=== PATIENT | female | born 1995 | race Caucasian/White ===

== ENCOUNTER 2017-11-10 14:55 | Emergency (ER) | payer OTHER, MEDICAID, SELFPAY ==
[2017-11-10 14:59] VITALS: BP 113/68; PULSE 84; RESP 20; TEMP 36.4; O2SAT 97; BMI 25.8
--- NOTE | 2017-11-10 18:57 | ED.SKABFB ---
HPI - Skin/Abscess/Foreign Bdy <MARK Meier - Last Filed: 11/10/17 22:07> General Chief complaint: Skin/Abscess/Foreign Body Stated complaint: States swollen lymph node for a long time Time Seen by Provider: 11/10/17 18:57 Source: patient Mode of arrival: ambulatory Limitations: no limitations History of Present Illness HPI narrative: 22-year-old healthy female nonsmoker here for complaint of having had a nodule to her right axillary area for the past 4 years. She also complains of having bilateral breast pain over the past couple of days. She does state that she is currently on her cycle. She denies any fevers or chills. No drainage from the area. No drainage from the breast. She denies any other concerns or complaints at this time. Review of Systems <MARK Meier - Last Filed: 11/10/17 22:07> Constitutional Denies chills, Denies fever(s), Denies lethargy and Denies weakness Eyes Denies change in vision, Denies eye discharge, Denies irritation and Denies loss of vision ENT Ears, Nose, Mouth, and Throat: Denies change in voice, Denies neck pain and Denies sore throat Cardiovascular Denies chest pain, Denies irregular heart rhythm, Denies lightheadedness, Denies palpitations, Denies dyspnea, Denies dyspnea on exertion and Denies orthopnea Respiratory Denies cough, Denies dyspnea, Denies dyspnea on exertion and Denies wheezing Gastrointestinal Gastrointestinal: Denies abdominal pain, Denies change in bowel habits, Denies diarrhea, Denies nausea and Denies vomiting Genitourinary Denies hematuria, Denies flank pain, Denies urinary incontinence and Denies urinary urgency Musculoskeletal Denies neck pain Integumentary/Breasts Denies pruritus, Denies erythema, Denies rash and Denies wounds Comments: Bilateral breast pain nodule to the right axillary area Neurologic Denies confusion, Denies loss of vision and Denies weakness Psychiatric Denies anxiety, Denies confusion, Denies depression, Denies homicidal ideation and Denies suicidal ideation Endocrine Denies palpitations Hematologic/Lymphatic Denies easy bruising Allergic/Immunologic Denies wheezing Exam <MARK Meier - Last Filed: 11/10/17 22:07> Initial Vital Signs Initial Vital Signs: Vital Signs Temperature 97.5 F L 11/10/17 14:59 Pulse Rate 84 11/10/17 14:59 Respiratory Rate 20 11/10/17 14:59 Blood Pressure 113/68 11/10/17 14:59 Pulse Oximetry 97 11/10/17 14:59 Const General: cooperative and well developed Nutritional Appearance: well nourished Orientation: alert, awake, oriented x3 and not confused [facility] Mouth: oral mucosae normal and moist mucous membranes Eyes Conjunctivae: conjunctivae normal Sclera: sclerae normal Pupils: PERRL EOM: EOM intact bilaterally Resp Effort & Inspection: normal respiratory effort, able to speak in complete sentences, no respiratory distress and no use of accessory muscles Auscultation: clear to auscultation bilaterally, no rales, no rhonchi and no wheezes Cardio Rate: regular rate Rhythm: regular rhythm Heart Sounds: no click, no gallops, no murmurs and no rubs Pulses: normal peripheral pulses GI Inspection: non-distended Palpation: soft, no hepatosplenomegaly, No guarding, No pulsatile mass and No tender Auscultation: normal bowel sounds Skin General: No jaundice and No petechiae Other: Approximately 2 cm x 2 cm nodule to the right axillary area. No erythema. No induration or fluctuance. Does not appear infectious at this time. Bilateral breast exam unremarkable with no erythema. No drainage. Neuro General: alert, oriented x3, gait normal and no focal motor deficits Speech: speech normal <Marii Palacios DO - Last Filed: 11/11/17 03:07> Initial Vital Signs Initial Vital Signs: Vital Signs Temperature 97.5 F L 11/10/17 14:59 Pulse Rate 84 11/10/17 14:59 Respiratory Rate 20 11/10/17 14:59 Blood Pressure 113/68 11/10/17 14:59 Pulse Oximetry 97 11/10/17 14:59 Course <MARK Meier - Last Filed: 11/10/17 22:07> Vital Signs - 8 hr 11/10/17 19:39 Pulse Rate 67 Respiratory Rate 20 Blood Pressure [Right Arm] 91/54 L Pulse Oximetry 99 <Marii Palacios DO - Last Filed: 11/11/17 03:07> Vital Signs - 8 hr 11/10/17 19:39 Pulse Rate 67 Respiratory Rate 20 Blood Pressure [Right Arm] 91/54 L Pulse Oximetry 99 MDM - Skin/Abscess/Foreign Bdy <MARK Meier - Last Filed: 11/10/17 22:07> [facility] Narrative Medical decision making narrative: Nodule to the right axillary area does not appear infectious at this time. No infection is appreciated in the breast. Patient is encouraged to follow up with primary care provider next week and discussion of referral to Dermatology and for mammogram. Breast pain appears to be secondary to her menstrual cycle. [id number] Tylenol or Motrin as needed for any discomfort. Follow up with primary care provider next week. Return emergency for any worsening symptoms. Discharge Plan Departure Patient Disposition: Home Clinical Impression: Pain in right axilla Discharge Date/Time: 11/10/17 20:14 Interventions: ED Discharge Assessment Last Done: 11/10/17 20:13 Instructions: DI for Breast Pain (Mastalgia) Activity Restrictions/Additional Instructions: Sinus symptoms not appear to be infectious at this time. Breast pain most likely secondary to menstrual cycle pain. Recommend follow up with primary care provider next week for further evaluation and discussion for referral to Dermatology and discussion about mammogram. Use [id number] Tylenol or Motrin as needed for any discomfort. Follow up with her primary care provider. Return emergency room for worsening symptoms. Referrals: [facility] [Provider Group] <Marii Palacios DO - Last Filed: 11/11/17 03:07> [facility] ED Attending Kelli Attestation: I was immediately available in the department for consultation. Documentation has been reviewed. I agree with assessment and plan.
[2017-11-10 19:39] VITALS: BP 91/54; PULSE 67; RESP 20; O2SAT 99
--- NOTE | 2017-11-10 20:01 | PC.NURSE ---
stand by with magdi chaudhary
== END 2017-11-10 20:14 | disposition home or self-care (01) ==
PROVIDERS: Emergency Provider Nurse Practitioner Family
DX: M79.621 Pain in right upper arm (principal)
CPT/HCPCS: 99282

== ENCOUNTER 2019-05-04 12:20 | Emergency (ER) | payer OTHER, MEDICAID, SELFPAY ==
[2019-05-04 12:34] VITALS: BP 150/71; PULSE 79; RESP 14; TEMP 36.7; O2SAT 100; BMI 21.9
[2019-05-04 13:23] LABS: Influenza A - CEPHEID Flu A NEGATIVE (NEGATIVE); Influenza B - CEPHEID Flu B NEGATIVE (NEGATIVE)
[2019-05-04] MEDS: ONDANSETRON 4 MG ODT SL (13:43)
[2019-05-04] MEDS: ALBUTEROL HFA 60 PUFF/8 GM INH INH (13:58)
--- NOTE | 2019-05-04 14:53 | ED_ITS ---
HPI - URI/Sore Throat <MARK Bajwa - Last Filed: 05/04/19 15:00> General Chief Complaint: Upper Respiratory Symptoms Stated Complaint: SOB, elevated temp, dry cough, chills Time Seen by Provider: 05/04/19 12:49 Source: patient Mode of arrival: Ambulatory Limitations: no limitations History of Present Illness HPI Narrative: This is a 24-year-old female, nonsmoker, who presents to ED with 2 day duration of runny nose, tickle in the throat, cough, feeling fatigued, short of breath, nausea. Patient was instructed to going to ED for an evaluation and work note from her work [employer]. Patient reports her roommate's girlfriend who she had a close contact with before her symptoms started was just diagnosed with payan virus in [facility] and is currently self quarantine herself at this time. Patient denies chronic illnesses. Patient denies fever but self reported hot to touch and chills at this time. Patient denies diarrhea. Related Data Previous Rx's Medication Instructions Recorded ondansetron 4 mg PO BID-TID PRN #10 tab 05/04/19 Allergies Allergy/AdvReac Type Severity Reaction Status Date / Time No Known Drug Allergies Allergy Verified 05/04/19 12:34 Review of Systems <MARK Bajwa - Last Filed: 05/04/19 15:00> Review of Systems Narrative: General: See HPI HEENT: See HPI Respiratory: See HPI Cardiovascular: Denies chest pain, palpitations, orthopnea, edema. Gastrointestinal: Denies (+) nausea, vomiting, abdominal pain, diarrhea, constipation, melena. : Denies dysuria, frequency, incontinence, hematuria, urinary retention. Musculoskeletal: Denies weakness, joint pain or bony pain. Skin: Denies rash, skin lesions, or other. Neurologic: Denies weakness, headache, numbness, change in speech, confusion, seizures, incoordination. Psychiatric: No concerning psychosocial issues. 12-point review of systems is negative except for those stated above. Patient History <MARK Bajwa - Last Filed: 05/04/19 15:00> Medical History No significant past medical history (Acute) Surgical History No pertinent past surgical history (Acute) Social History Smoking Status: Never smoker Smoking Status: Never smoker Substance Use Type: marijuana Exam <MARK Bajwa - Last Filed: 05/04/19 15:00> Narrative Exam Narrative: GEN: Alert, oriented x 3, well appearing and nourished, and in no acute distress. Head: Normal cephalic, atraumatic. No scalp or temporal tenderness, palpable mass or rash. EYES: Pupils are equal, round, and reactive to light and accommodation. Extraocular muscles are intact bilaterally. There is no subconjunctival hemorrhage, exudate and sclera non-icteric. ENT: Bilateral auditory canals and tympanic membranes clear. Hearing grossly intact. Nose without bleeding, purulent discharge or deviation. Facial sinuses nontender to palpate. Mucous membrane moist, no mucosal lesion. Throat without erythema, tonsillar hypertrophy or exudate. Uvula in midline, airway patent. Neck: Trachea in midline. No JVD, non-tender without lymphadenopathy. No masses or thyroid megaly. Supple, non-tender and no meningeal signs. CARDIAC: Normal regular rate and rhythm without murmurs, gallops, or rubs. No chest wall tenderness. No peripheral edema, cyanosis or pallor. Capillary refill is less than 2 seconds. RESPIRATORY: Lungs are clear to auscultate bilaterally. Frequent nonproductive cough during exam without wheezes, rales, or rhonchi. No stridor, respiratory distress, increase work of breathing, or accessary muscle used. ABD: Abdomen soft, nontender and non-distended. No guarding or rebound tenderness to palpate. Bowel sounds are normal in all 4 quadrants. There is no palpable masses or organomegaly. EXT: Full painless ROM of all extremities with no loss of sensation, strength, effusion or edema. SKIN: Warm, dry, normal color for patient. No erythema, lesions or rash over visible areas. BACK: Nontender without deformity or crepitance. No flank tenderness. NEUROLOGICAL: Alert and oriented to place, time and person. Sensation and motor function intact bilaterally. No facial droops, dysphasia. PSYCHIATRIC: Good judgement and reason, without hallucinations, abnormal affect or abnormal behaviors during the examination. Initial Vital Signs Initial Vital Signs: Vital Signs Temperature 98.1 F 05/04/19 12:34 Pulse Rate 79 05/04/19 12:34 Respiratory Rate 14 05/04/19 12:34 Blood Pressure 150/71 H 05/04/19 12:34 Pulse Oximetry 100 05/04/19 12:34 <Madhav Hernandez MD - Last Filed: 05/11/19 17:57> Initial Vital Signs Initial Vital Signs: Vital Signs Temperature 98.1 F 05/04/19 12:34 Pulse Rate 79 05/04/19 12:34 Respiratory Rate 14 05/04/19 12:34 Blood Pressure 150/71 H 05/04/19 12:34 Pulse Oximetry 100 05/04/19 12:34 Scores <MARK Bajwa - Last Filed: 05/04/19 15:00> GCS [place] coma scale eye opening: Spontaneous [place] coma scale verbal response: Orientated Juan coma scale motor response: Obey commands [place] coma scale total score: 15 Course <MARK Bajwa - Last Filed: 05/04/19 15:00> Orders Ordered: Discontinued Medications Albuterol (Ventolin Hfa) 2 puff INH NOW ONE Stop: 05/04/19 13:25 Last Admin: 05/04/19 13:58 Dose: 1 prepack Documented by: JEFF Ondansetron HCl (Zofran Odt) 4 mg SL NOW ONE Stop: 05/04/19 13:25 Last Admin: 05/04/19 13:43 Dose: 4 mg Documented by: THERESA Vital Signs Vital signs: Vital Signs - 8 hr 05/04/19 12:34 Temperature 98.1 F Pulse Rate 79 Respiratory Rate 14 Blood Pressure 150/71 H Pulse Oximetry 100 <Madhav Hernandez MD - Last Filed: 05/11/19 17:57> Orders Ordered: Discontinued Medications Albuterol (Ventolin Hfa) 2 puff INH NOW ONE Stop: 05/04/19 13:25 Last Admin: 05/04/19 13:58 Dose: 1 prepack Documented by: JEFF Ondansetron HCl (Zofran Odt) 4 mg SL NOW ONE Stop: 05/04/19 13:25 Last Admin: 05/04/19 13:43 Dose: 4 mg Documented by: SCANAPO Vital Signs Vital signs: Vital Signs - 8 hr 05/04/19 12:34 Temperature 98.1 F Pulse Rate 79 Respiratory Rate 14 Blood Pressure 150/71 H Pulse Oximetry 100 MDM - URI/Sore Throat <MARK Bajwa - Last Filed: 05/04/19 15:00> Differential Diagnosis Differential diagnosis: Likely upper respiratory infection, viral infection, bronchitis, influenza, pharyngitis and other (Payan virus) Medical Records Attestation: I reviewed the patient's medical records. Lab Data Attestation: I reviewed the patient's lab results. Labs: Lab Results 05/04/19 05/04/19 Range/Units 12:37 12:37 Coronavirus (PCR) Not detected (Not Detected) Influenza A (RT-PCR) Flu a negative (NEGATIVE) Influenza B (RT-PCR) Flu b negative (NEGATIVE) Point of Care Testing Rapid Strep A Negative MDM Narrative Medical decision making narrative: This is a 24 year female otherwise healthy presents to ED with upper respiratory illness symptoms for last 2 days without severe fever, cough, short of breath. Patient reports she had close contact with her roommate's girlfriend who has diagnosed with payan virus currently. Today's flu test was negative. Strep throat swab was negative. Lung sounds are clear to auscultate in all lobes without increased work of breathing but patient had frequent nonproductive cough. Patient reports subjective fever and chills. Room air O2 sat was 100%. Patient was provided with albuterol inhaler and MDI teaching, discharged to home with Zofran for nausea as needes and advised to self quarantine herself for next 4-5 days until payan virus result comes back and this may prolonged up to 2-3 weeks if the test comes back positive. Good hand hygiene, keeping distance from others along the supportive care discussed with the patient. Return precautions were discussed with the patient and verbalized understanding and in agreement with treatment plan. <Madhav Hernandez MD - Last Filed: 05/11/19 17:57> Lab Data Labs: Lab Results 05/04/19 05/04/19 Range/Units 12:37 12:37 Coronavirus (PCR) Not detected (Not Detected) Influenza A (RT-PCR) Flu a negative (NEGATIVE) Influenza B (RT-PCR) Flu b negative (NEGATIVE) Point of Care Testing Rapid Strep A Negative Discharge Plan Departure Patient Disposition: Home Clinical Impression: Viral infection Upper respiratory infection Qualifiers: URI type: unspecified URI Qualified Code(s): J06.9 - Acute upper respiratory infection, unspecified Discharge Date/Time: 05/04/19 15:06 Instructions: DI for Viral Upper Respiratory Infection -- Adult Activity Restrictions/Additional Instructions: You have been diagnosed with [upper respiratory infection likely viral illness. Influenza test and strep throat test were negative. Since you report that you had close contact with the personal was coronal virus, we had sent out testing kit but the results will not be ready up to 5 days. You need to self quarantine herself until you hear the result. If this comes back positive you are to self quarantine herself up to 2 weeks until no fever for 72 hours or you are feeling well which at ever comes later.]. What to do: *Take your medications as directed. You can take [id number] Tylenol and or Motrin as needed for discomfort. Please use albuterol inhaler that has been provided to you through spacer for frequent cough, chest tightness, wheezing. You can take [id number] cold medications such as Mucinex. Hydrate well and rest. Good hand hygiene, no close contact with others and other information that you can find in department health and CDC for payan virus precautions. *Follow up with your primary care provider in 2-3 days, call for an appointment. Let them know you were seen in the ED and that we asked you to be seen in follow up. *Return to ED if you have any new, worsening, or concerning symptoms, such as [high fever, breathing difficulty, chest pain, unable to tolerate fluids or any acute concerns]. Prescriptions: New ondansetron 4 mg tablet,disintegrating 4 mg PO BID-TID PRN (Reason: nausea and vomiting) Qty: 10 RF: 0 Referrals: [facility] [Outside] Stand Alone Forms: Work Release Note, Work/School Release
[2019-05-04 15:05] VITALS: BP 126/68; PULSE 76; RESP 18; O2SAT 100
[2019-05-08 17:09] LABS: COVID19 Sendout Not Detected (Not Detected)
== END 2019-05-04 15:06 | disposition home or self-care (01) ==
PROVIDERS: Emergency Medicine; Emergency Provider Nurse Practitioner Family
DX: J06.9 Acute upper respiratory infection, unspecified (principal); R50.9 Fever, unspecified; R05 Cough; R06.02 Shortness of breath
CPT/HCPCS: 87502; 87635; 87880; 99283

== ENCOUNTER 2019-08-25 09:32 | Emergency (ER) | payer OTHER, MEDICAID, SELFPAY ==
[2019-08-25] VITALS (10 sets, daily range): BP systolic 110–118; BP diastolic 68–75; PULSE 68–96; RESP 14–16; TEMP 36.8–37.2; O2SAT 98–100; BMI 24.9
--- NOTE | 2019-08-25 10:31 | ED_ITS ---
HPI - URI/Sore Throat General Chief Complaint: Upper Respiratory Symptoms Stated Complaint: Suspects Covid, trouble breathing, bad cough Time Seen by Provider: 08/25/19 10:13 Source: patient Mode of arrival: Family Vehicle Limitations: no limitations History of Present Illness HPI Narrative: CC: Persistent Cough HPI: The patient is a 24-year-old female who states that she initially had a sore throat with nasal congestion and a cough which started 1 week ago. She thought that it was a upper respiratory infection but now she thinks that she may have Covid. She is unaware of any exposure. She complains that she has been dizzy and lightheaded with a headache. She has developed a progressive worsening cough productive of a clear sputum. She complains of diffuse muscle aches and body aches but no specific back ache. She had a sore throat 1 week ago. She has had a loss of taste and smell. Her appetite has been decreased. She has intermittently felt feverish with chills and sweats. She has had no nu mbness tingling paresthesias or anesthesia. She has a past history of pneumonia last year has had no significant wheezing. She denies any change in vision or dysphasia . She has had chest pain with coughing but no palpitations or dizziness. She denies any back ache. She has had diffuse abdominal cramps with nausea and vomiting. She vomited twice this morning. She has had diarrhea for the last 2 days without melena or hematochezia. She denies any urinary symptoms. She denies being states that her last menstrual period was 1 week ago. The patient does not smoke cigarettes drink alcohol chew tobacco but does smoke marijuana. She works in the [employer] department at [employer] Related Data Previous Rx's Medication Instructions Recorded ondansetron 4 mg PO BID-TID PRN #10 tab 05/04/19 albuterol sulfate 2 puff INHALATION Q4-6H PRN #8.5 08/25/19 gram doxycycline hyclate 100 mg PO BID #14 tab 08/25/19 loperamide 2 mg PO Q4H PRN #10 tab 08/25/19 ondansetron HCl [Zofran] 4 mg PO Q6H PRN #12 tab 08/25/19 Allergies Allergy/AdvReac Type Severity Reaction Status Date / Time No Known Drug Allergies Allergy Verified 05/04/19 12:34 Review of Systems Review of Systems Narrative: Her review of systems were all negative except for those mentioned in the history of present illness. Patient History Medical History No significant past medical history (Acute) Surgical History No pertinent past surgical history (Acute) Social History Smoking Status: Former smoker Smoking Status: Former smoker alcohol intake frequency: 0-2 drinks per day Substance Use Type: marijuana Exam Narrative Exam Narrative: PHYSICAL EXAM: CONSTITUTIONAL: Awake, Alert, Oriented, Coherent, Cooperative in NAD. Does not appear toxic or ill. HEAD: AT/NC EENT: PERRL, FROM of eyes, no discharge. NOSE:No epistaxis or nasal drainage MOUTH:Oral mucosa is moist and pink, posterior pharynx is without erythema or exudate. NECK: Supple, no obvious JVD, Trachea is midline without stridor, no palpable LN. SPINE: Palpation of the cervical, Thoracic, Lumbar or Sacral spine reveals no gross deformity or tenderness. No CVA tenderness. THORAX: No deformity, retractions. The patient's chest wall is tender anteriorly to AP compression and mimics the chest discomfort described LUNGS: Clear, symmetrical breath sounds without respiratory distress. No wheezes rhonchi or rales appreciated. HEART: Normal heart tones, regular rhythm and rate without murmur. ABDOMEN: Soft, non-tender, without guarding, rebound, rigidity or palpable mass. EXTREMITIES: No edema, deformity, tenderness or cyanosis. SKIN: No rash, bruising, petechiae or purpura. NEURO: Awake, alert, oriented, conversive, cranial nerves II-XII are symmetrical , moves all 4 extremities and is ambulatory. MENTAL HEALTH: Does not appear anxious or depressed. Initial Vital Signs Initial Vital Signs: Vital Signs Pulse Rate 96 H 08/25/19 09:42 Pulse Oximetry 98 08/25/19 09:42 Course Course Course Narrative: 1211: Chest x-ray is negative for any acute cardiopulmonary pathology. Laboratory chemistries remain pending at this time. Orders Ordered: Discontinued Medications Albuterol (Ventolin Hfa) 2 puff INH NOW ONE Stop: 08/25/19 10:33 Last Admin: 08/25/19 11:11 Dose: Not Given Documented by: PERLA Sodium Chloride (Normal Saline 0.9%) 1,000 mls @ 1,000 mls/hr IV BOLUS ONE Stop: 08/25/19 11:45 Last Admin: 08/25/19 11:12 Dose: Not Given Documented by: PERLA Ibuprofen (Advil) 800 mg PO NOW ONE Stop: 08/25/19 11:16 Last Admin: 08/25/19 11:49 Dose: 800 mg Documented by: PERLA Ketorolac Tromethamine (Toradol) 30 mg IV NOW ONE Stop: 08/25/19 10:47 Last Admin: 08/25/19 11:11 Dose: Not Given Documented by: PERLA Methylprednisolone (Solu-Medrol 125 Mg Vial) 125 mg IV NOW ONE Stop: 08/25/19 10:33 Last Admin: 08/25/19 11:11 Dose: Not Given Documented by: PERLA Ondansetron HCl (Zofran) 4 mg IV NOW ONE Stop: 08/25/19 10:47 Last Admin: 08/25/19 11:12 Dose: Not Given Documented by: PERLA Ondansetron HCl (Zofran Odt) 4 mg SL NOW ONE Stop: 08/25/19 11:16 Last Admin: 08/25/19 11:51 Dose: 4 mg Documented by: PERLA Prednisone (Deltasone) 60 mg PO NOW ONE Stop: 08/25/19 11:16 Last Admin: 08/25/19 11:49 Dose: 60 mg Documented by: PERLA Vital Signs Vital signs: Vital Signs - 8 hr 08/25/19 09:42 08/25/19 09:43 08/25/19 09:48 Temperature 99.0 F Pulse Rate 96 H 89 92 H Respiratory Rate 16 Blood Pressure 114/75 114/75 Pulse Oximetry 98 98 99 08/25/19 10:00 08/25/19 10:30 08/25/19 11:00 Temperature Pulse Rate 72 69 68 Respiratory Rate Blood Pressure Pulse Oximetry 99 100 100 08/25/19 11:07 Temperature Pulse Rate Respiratory Rate 16 Blood Pressure Pulse Oximetry MDM - URI/Sore Throat Medical Records Attestation: I reviewed the patient's medical records. Lab Data Attestation: I reviewed the patient's lab results. Result diagrams: 08/25/19 12:00 08/25/19 12:00 Labs: Lab Results 08/25/19 08/25/19 08/25/19 Range/Units 12:00 12:00 12:31 WBC 9.5 (4.5-11.0) X10^3/uL RBC 4.47 (4.0-5.2) X10^6/uL Hgb 13.2 (12.0-16.0) g/dL Hct 39.3 (36-46) % MCV 88.0 (80-100) fL MCH 29.6 (26-34) PG MCHC 33.6 (30-36) % RDW 12.7 (11.6-14.8) % Plt Count 315 (150-400) X10^3/uL Neut % (Auto) 70.6 (50-75) % Lymph % (Auto) 22.2 L (25-40) % [place] % (Auto) 5.0 (3-14) % Eos % (Auto) 1.7 L (2-4) % Baso % (Auto) 0.5 (0-2) % Neut # (Auto) 6700 (6578-7683) /uL Lymph # (Auto) 2100 (9837-9461) /uL [place] # (Auto) 500 (0-900) /uL Eos # (Auto) 200 (0-450) /uL Baso # (Auto) 0 (0-100) /uL Sodium 137 (137-145) mmol/L Potassium 4.4 (3.4-5.1) mmol/L Chloride 103 (98-107) mmol/L Carbon Dioxide 25 (22-32) mmol/L BUN 7 (7-17) mg/dL Creatinine 0.49 L (0.52-1.04) mg/dL Estimated GFR > 60.0 (>60) mL/min BUN/Creatinine Ratio 14.3 (6-22) Glucose 89 (70-100) mg/dL Calcium 9.7 (8.4-10.2) mg/dL Total Bilirubin 0.6 (0.2-1.3) mg/dL AST 30 (14-36) IU/L ALT 17 (<35) IU/L Alkaline Phosphatase 51 (38-126) U/L Total Protein 7.6 (6.3-8.2) g/dL Albumin 4.7 (3.5-5.0) g/dL Globulin 2.9 (1.7-4.1) g/dL Albumin/Globulin Ratio 1.6 (1.0-2.8) Lipase 20 L (23-300) U/L Urine Color Urine Appearance Urine pH (4.5-8.0) Ur Specific [place] (1.000-1.035) Urine Protein (Negative) Urine Glucose (UA) (Negative) g/dL Urine Ketones (NEGATIVE) Urine Occult Blood (Negative) Urine Nitrate (Negative) Urine Bilirubin (NEGATIVE) Urine Urobilinogen (0.2) E.U./dL Ur Leukocyte Esterase (NEGATIVE) Urine RBC (0-5/HPF) Urine WBC (0-5/HPF) Ur Squamous Epith Cells (0-5/HPF) Amorphous Sediment Urine Bacteria (None) Urine Mucus (Negative) Ur Culture Indicated? Urine Test Negative (Negative) COVID-19 PCR (Negative) 08/25/19 08/25/19 Range/Units 12:31 12:31 WBC (4.5-11.0) X10^3/uL RBC (4.0-5.2) X10^6/uL Hgb (12.0-16.0) g/dL Hct (36-46) % MCV (80-100) fL MCH (26-34) PG MCHC (30-36) % RDW (11.6-14.8) % Plt Count (150-400) X10^3/uL Neut % (Auto) (50-75) % Lymph % (Auto) (25-40) % [place] % (Auto) (3-14) % Eos % (Auto) (2-4) % Baso % (Auto) (0-2) % Neut # (Auto) (6730-6515) /uL Lymph # (Auto) (4996-9258) /uL [place] # (Auto) (0-900) /uL Eos # (Auto) (0-450) /uL Baso # (Auto) (0-100) /uL Sodium (137-145) mmol/L Potassium (3.4-5.1) mmol/L Chloride (98-107) mmol/L Carbon Dioxide (22-32) mmol/L BUN (7-17) mg/dL Creatinine (0.52-1.04) mg/dL Estimated GFR (>60) mL/min BUN/Creatinine Ratio (6-22) Glucose (70-100) mg/dL Calcium (8.4-10.2) mg/dL Total Bilirubin (0.2-1.3) mg/dL AST (14-36) IU/L ALT (<35) IU/L Alkaline Phosphatase (38-126) U/L Total Protein (6.3-8.2) g/dL Albumin (3.5-5.0) g/dL Globulin (1.7-4.1) g/dL Albumin/Globulin Ratio (1.0-2.8) Lipase (23-300) U/L Urine Color Yellow Urine Appearance Sl cloudy Urine pH 6.0 (4.5-8.0) Ur Specific [place] 1.020 (1.000-1.035) Urine Protein Negative (Negative) Urine Glucose (UA) Negative (Negative) g/dL Urine Ketones 3+ H (NEGATIVE) Urine Occult Blood Trace-intact (Negative) Urine Nitrate Negative (Negative) Urine Bilirubin Negative (NEGATIVE) Urine Urobilinogen 0.2 (0.2) E.U./dL Ur Leukocyte Esterase Negative (NEGATIVE) Urine RBC 0-1/hpf (0-5/HPF) Urine WBC 0-1/hpf (0-5/HPF) Ur Squamous Epith Cells 10-30 /hpf H (0-5/HPF) Amorphous Sediment 2+ Urine Bacteria Moderate (10-30) H (None) Urine Mucus 2+ H (Negative) Ur Culture Indicated? Cult not indicated Urine Test (Negative) COVID-19 PCR Negative (Negative) Point of Care Testing Rapid Strep A Negative Discharge Plan Departure Patient Disposition: Home Clinical Impression: Productive cough, Sore throat Abdominal pain Qualifiers: Abdominal location: generalized Qualified Code(s): R10.84 - Generalized abdominal pain Nausea and vomiting Qualifiers: Vomiting type: unspecified Vomiting Intractability: non-intractable Qualified C ode(s): R11.2 - Nausea with vomiting, unspecified Diarrhea Qualifiers: Diarrhea type: unspecified type Qualified Code(s): R19.7 - Diarrhea, unspecified Discharge Date/Time: 08/25/19 13:50 Instructions: Diarrhea, DI for Acute Bronchitis, DI for Vomiting -- Adult, Coronavirus Disease 2019 Activity Restrictions/Additional Instructions: 1. You need to follow-up with your primary care physician and be re-evaluated in 48-72 hours if not improved. 2. You need to be in isolation for the next 3-4 days until your Covid test returns and are called by the hospital with the results. 3. You need to drink 3-4 L of fluid per day. 4. Take the doxycycline 100 mg p.o. b.i.d. for the next 7 days for your persistent cough and bronchitis. 5. Prednisone 40 mg per day for the next 5 days for your cough. 6. Use an albuterol inhaler 1-2 puffs every 2-4 hours for persistent cough wheezing and shortness of breath 7. Use loperamide for your diarrhea as prescribed.. Prescriptions: New ondansetron HCl [Zofran] 4 mg tablet 4 mg PO Q6H PRN (Reason: nausea and vomiting) Qty: 12 RF: 0 doxycycline hyclate 100 mg tablet 100 mg PO BID Qty: 14 RF: 0 loperamide 2 mg tablet 2 mg PO Q4H PRN (Reason: loose stool) Qty: 10 RF: 0 albuterol sulfate 90 mcg/actuation HFA aerosol inhaler 2 puff INHALATION Q4-6H PRN (Reason: shortness of breath or wheezing) Qty: 8.5 RF: 0 No Action ondansetron 4 mg tablet,disintegrating 4 mg PO BID-TID PRN (Reason: nausea and vomiting) Qty: 10 RF: 0
--- NOTE | 2019-08-25 10:33 | DI.RAD.S_ITS ---
PROCEDURE: XR CHEST 1V INDICATIONS: flu-like symptoms TECHNIQUE: One view of the chest was acquired. COMPARISON: None. FINDINGS: Surgical changes and devices: None. Lungs and pleura: Lungs are clear. No pleural effusions or pneumothorax. Mediastinum: Mediastinal contours appear normal. Heart size is normal. Bones and chest wall: No suspicious bony lesions. Overlying soft tissues appear unremarkable. IMPRESSION: No evidence acute pulmonary process. Dictated by: Constantin Ruiz M.D. on 08/25/2019 at 10:38 Approved by: Constantin Ruiz M.D. on 08/25/2019 at 10:38
[2019-08-25] MEDS: IBUPROFEN 400 MG TABLET 800 MG PO (11:49)
[2019-08-25] MEDS: predniSONE 20 MG TABLET 60 MG PO (11:49)
[2019-08-25] MEDS: ONDANSETRON 4 MG ODT SL (11:51)
[2019-08-25 12:10] LABS: Add Manual Diff / Slide Review NO; Basophils Absolute Auto 0 /uL (0-100); Basophils Percent Auto 0.5 % (0-2); Eosinophils Absolute Auto 200 /uL (0-450); Eosinophils Percent Auto 1.7 % (2-4); Hematocrit 39.3 % (36-46); Hemoglobin 13.2 g/dL (12.0-16.0); Lymphocytes Absolute Auto 2100 /uL (1100-4500); Lymphocytes Percent Auto 22.2 % (25-40); Mean Corpuscular HGB Conc 33.6 % (30-36); Mean Corpuscular Hemoglobin 29.6 PG (26-34); Monocytes Absolute Auto 500 /uL (0-900); Neutrophils Absolute Auto 6700 /uL (1500-7000); Neutrophils Percent Auto 70.6 % (50-75); Platelet Count 315 X10^3/uL (150-400); Red Blood Cell Count 4.47 X10^6/uL (4.0-5.2); Red Cell Distribution Width 12.7 % (11.6-14.8); White Blood Cell Count 9.5 X10^3/uL (4.5-11.0)
[2019-08-25 12:23] LABS: Alanine Aminotransferase 17 IU/L (<35); Albumin 4.7 g/dL (3.5-5.0); Albumin Globulin Ratio 1.6 (1.0-2.8); Alkaline Phosphatase 51 U/L (38-126); Aspartate Aminotransferase 30 IU/L (14-36); BUN Creatinine Ratio 14.3 (6-22); Bilirubin Total 0.6 mg/dL (0.2-1.3); Blood Urea Nitrogen 7 mg/dL (7-17); Calcium 9.7 mg/dL (8.4-10.2); Carbon Dioxide 25 mmol/L (22-32); Chloride 103 mmol/L (98-107); Estimated Glomerular Filt Rate > 60.0 mL/min (>60); Globulin 2.9 g/dL (1.7-4.1); Glucose 89 mg/dL (70-100); HEMOLYSIS < 15 (0-50); Lipase 20 U/L (23-300); Potassium 4.4 mmol/L (3.4-5.1); Sodium 137 mmol/L (137-145); Total Protein 7.6 g/dL (6.3-8.2)
[2019-08-25 12:46] LABS: Appearance Urine UA SL CLOUDY; Bilirubin Urine UA NEGATIVE (NEGATIVE); Color Urine UA YELLOW; Glucose Urine UA NEGATIVE (Negative); Ketones Urine UA 3+ (NEGATIVE); Leukocyte Esterase Urine UA NEGATIVE (NEGATIVE); Nitrite Urine UA NEGATIVE (Negative); Occult Blood Urine UA TRACE-INTACT (Negative); Protein Urine UA NEGATIVE (Negative); Urobilinogen Urine UA 0.2 E.U./dL (0.2)
[2019-08-25 12:50] LABS: Pregnancy Test Urine Negative (Negative)
[2019-08-25 13:02] LABS: RBC Urine 0-1/HPF (0-5/HPF); WBC Urine 0-1/HPF (0-5/HPF)
[2019-08-25 13:03] LABS: Amorphous Sediment Urine 2+; Bacteria Urine Moderate (10-30); Culture Indicated Urine Cult Not Indicated; Mucus Urine 2+ (Negative); Squamous Epithelial Cell Urine 10-30 /HPF (0-5/HPF)
[2019-08-25 13:50] LABS: COVID19 -Nasal RAPID Negative (Negative)
== END 2019-08-25 13:50 | disposition home or self-care (01) ==
PROVIDERS: Emergency Provider Emergency Medicine
DX: R05 Cough (principal); J02.9 Acute pharyngitis, unspecified; R10.84 Generalized abdominal pain; R11.2 Nausea with vomiting, unspecified; R19.7 Diarrhea, unspecified; R68.89 Other general symptoms and signs
CPT/HCPCS: 36415; 71045; 80053; 81001; 81025; 83690; 85025; 87635; 87880; 99284

== ENCOUNTER 2020-07-02 10:36 | Emergency (ER) | payer OTHER, MEDICAID, SELFPAY ==
[2020-07-02 10:48] VITALS: BP 120/77; PULSE 86; RESP 18; TEMP 36.5; O2SAT 100; BMI 25.0
--- NOTE | 2020-07-02 11:40 | ED_ITS ---
HPI - Skin/Abscess/Foreign Bdy General Chief complaint: Skin/Abscess/Foreign Body Stated complaint: hemmhorroid for a week, getting worse Time Seen by Provider: 07/02/20 10:40 Source: patient Mode of arrival: Ambulatory Limitations: no limitations History of Present Illness HPI narrative: 25-year-old female nonsmoker with history of asthma presents with a chief complaint of about 1 week of a painful external hemorrhoid with episodes of bright red bleeding. She denies any fever chills nor nausea or vomiting. She states that she has been straining on the toilet the past few days and has had no significant bowel movements over that time period. She works at a local [employer] and is frequently lifting heavy objects and states that when lifting these heavy object she can feel the hemorrhoids push out. MD complaint: other Onset (ago): hour(s) Tetanus up to date: yes Pain Consistency: intermittent Relieving factors: rest Treatments prior to arrival: none Related Data Previous Rx's Medication Instructions Recorded ondansetron 4 mg PO BID-TID PRN #10 tab 05/04/19 albuterol sulfate 2 puff INHALATION Q4-6H PRN #8.5 08/25/19 gram doxycycline hyclate 100 mg PO BID #14 tab 08/25/19 loperamide 2 mg PO Q4H PRN #10 tab 08/25/19 ondansetron HCl [Zofran] 4 mg PO Q6H PRN #12 tab 08/25/19 hydrocortisone [Anusol-HC] 1 applic WA BID-QID PRN #30 g 07/02/20 hydrocortisone acetate [Anusol-HC] 25 mg WA BID #24 ea 07/02/20 Allergies Allergy/AdvReac Type Severity Reaction Status Date / Time No Known Drug Allergies Allergy Verified 05/04/19 12:34 Review of Systems Constitutional Constitutional: Denies chills, Denies fatigue, Denies fever(s), Denies frequent falls, Denies lethargy and Denies weakness Eyes Eyes: Denies change in vision, Denies eye discharge, Denies irritation and Denies loss of vision ENT Ears, Nose, Mouth, and Throat: Denies change in voice, Denies dizziness, Denies neck pain, Denies sore throat and Denies throat swelling Cardiovascular Cardiovascular: Denies chest pain, Denies irregular heart rhythm, Denies lightheadedness, Denies palpitations, Denies dyspnea, Denies dyspnea on exertion and Denies orthopnea Respiratory Respiratory: Denies cough, Denies dyspnea, Denies dyspnea on exertion and Denies wheezing Gastrointestinal Gastrointestinal: Denies abdominal pain, Reports hematochezia, Denies change in bowel habits, Denies diarrhea, Denies nausea and Denies vomiting Musculoskeletal Musculoskeletal: Denies neck pain and Denies numbness Integumentary/Breasts Skin/Breast: Denies pruritus, Denies erythema, Denies rash and Denies wounds Neurologic Neurologic: Denies behavioral changes, Denies confusion, Denies dizziness, Denies frequent falls, Denies loss of vision, Denies numbness and Denies weakness Psychiatric Psychiatric: Denies anxiety, Denies behavioral changes, Denies confusion, Denies depression, Denies homicidal ideation and Denies suicidal ideation Endocrine Endocrine: Denies fatigue, Denies flushing and Denies palpitations Hematologic/Lymphatic Hematologic/Lymphatic: Denies easy bruising Allergic/Immunologic Allergic/Immunologic: Denies urticaria, Denies throat swelling and Denies wheezing Patient History Medical History No significant past medical history Surgical History No pertinent past surgical history Social History Smoking Status: Former smoker Smoking Status: Former smoker alcohol intake frequency: 0-2 drinks per day Substance Use Type: marijuana Exam Narrative Exam Narrative: GEN: AOx3 and in mild distress EYES: Pupils are equal, round, and reactive to light and accommodation. Extraoccular muscles are intact bilaterally. There is no subconjunctival hemorrhage or exudate. CHEST: Lungs are clear to auscultation bilaterally and free of wheezes, rales, or rhonchi. Heart rate is regular rhythm, there are no murmurs, clicks, rubs, or gallops. There is no chest wall tenderness. ABD: Abdomen is soft and nontender. There is no guarding or rebound. Bowel sounds are normal in all 4 quadrants. There is no mass or organomegaly. RECTAL: Small minimally thrombosed external hemorrhoid with no significant active bleeding EXT: Full painless ROM of all extremities with no loss of sensation or strength. SKIN: Warm, pink, and dry. No erythema or rash Initial Vital Signs Initial Vital Signs: Vital Signs Temperature 97.7 F 07/02/20 10:48 Pulse Rate 86 07/02/20 10:48 Respiratory Rate 18 07/02/20 10:48 Blood Pressure 120/77 07/02/20 10:48 Pulse Oximetry 100 07/02/20 10:48 Course Vital Signs Vital signs: Vital Signs - 8 hr 07/02/20 10:48 Temperature 97.7 F Pulse Rate 86 Respiratory Rate 18 Blood Pressure 120/77 Pulse Oximetry 100 Discharge Plan Departure Patient Disposition: Home Clinical Impression: Hemorrhoid thrombosis Instructions: DI for Hemorrhoids Activity Restrictions/Additional Instructions: *You have been diagnosed with [bleeding thrombosed hemorrhoid] *What to do: *Please continue to take your regular medications as directed. Please consider an [id number] stool softener daily for the next week, you can pick this up when you get your prescription filled [ x] New medication prescriptions sent to your pharmacy: [[facility] [place]] [ ] New medication written as a paper prescription [ ] No new medications given *Please follow up with your primary care provider in 2-3 days, call for an appointment. Let them know you were seen in the Emergency Department and that we ask that you be seen in follow up. We will electronically transmit a record of today's note if your PCP is in our system *If you do not have a primary care provider please contact the [facility] Resource line at [phone]. They will ask some questions about your medical history and help get you set up with a doctor in the community. *Return to Emergency Department if you should have any new, worsening or concerning symptoms, such as [fever greater than 101 F, shaking chills, worsening pain, persistent vomiting or other bothersome symptoms] Prescriptions: New hydrocortisone acetate [Anusol-HC] 25 mg suppository 25 mg WA BID Qty: 24 RF: 0 hydrocortisone [Anusol-HC] 2.5 % cream with perineal applicator 1 applic WA BID-QID PRN (Reason: hemorrhoids) Qty: 30 RF: 0 No Action ondansetron HCl [Zofran] 4 mg tablet 4 mg PO Q6H PRN (Reason: nausea and vomiting) Qty: 12 RF: 0 doxycycline hyclate 100 mg tablet 100 mg PO BID Qty: 14 RF: 0 loperamide 2 mg tablet 2 mg PO Q4H PRN (Reason: loose stool) Qty: 10 RF: 0 albuterol sulfate 90 mcg/actuation HFA aerosol inhaler 2 puff INHALATION Q4-6H PRN (Reason: shortness of breath or wheezing) Qty: 8.5 RF: 0 ondansetron 4 mg tablet,disintegrating 4 mg PO BID-TID PRN (Reason: nausea and vomiting) Qty: 10 RF: 0 Referrals: [facility] [Outside]
== END 2020-07-02 11:12 | disposition home or self-care (01) ==
PROVIDERS: Emergency Provider Emergency Medicine
DX: K64.5 Perianal venous thrombosis (principal)
CPT/HCPCS: 99281

== ENCOUNTER 2021-10-21 11:22 | Emergency (ER) | payer OTHER, MEDICAID, SELFPAY ==
[2021-10-21 11:28] VITALS: BP 144/82; PULSE 91; RESP 16; TEMP 36.9; O2SAT 99; BMI 26.6
--- NOTE | 2021-10-21 11:31 | DI.RAD.S_ITS ---
PROCEDURE: XR HAND RT MIN 3V INDICATIONS: crush injury -- 1st and 2nd digit TECHNIQUE: 3 views of the hand(s) acquired. COMPARISON: None. FINDINGS: Bones: No fractures or dislocations. Carpal bones are normally aligned. No suspicious bony lesions. Soft tissues: No suspicious soft tissue calcifications. IMPRESSION: Unremarkable right hand radiographs Approved by: Sean Meek M.D. on 10/21/2021 at 11:01
[2021-10-21] MEDS: KETOROLAC 10 MG TABLET PO (12:30)
--- NOTE | 2021-10-21 12:32 | ED_ITS ---
HPI - Extremity Injury (Upper) <MARK England - Last Filed: 10/21/21 12:37> General Chief Complaint: Extremity Injury, Upper Stated Complaint: Injured right hand/finger Time Seen by Provider: 10/21/21 12:03 History of Present Illness HPI narrative: This is a 26-year-old right-hand dominant female presents to the emergency department with a thumb injury after she accidentally shut her thumb in the car door just prior to arrival. Patient was not at work, denies any range of motion changes, complains of pain out of proportion which is worsening and blood underneath the nail. She denies taking any pain medication, states that she takes lithium and was getting her labs drawn this morning when she got in her car she shut her thumb in the door accidentally. She denies any allergies to medications. She denies any numbness or tingling, states that the whole some hurts very bad. Related Data Previous Rx's Medication Instructions Recorded ondansetron 4 mg disintegrating 4 mg PO BID-TID PRN nausea and 05/04/19 tablet vomiting #10 tabs albuterol sulfate 90 mcg/actuation 2 puff inhalation Q4-6H PRN 08/25/19 aerosol inhaler shortness of breath or wheezing #8.5 grams doxycycline hyclate 100 mg tablet 100 mg PO BID #14 tabs 08/25/19 loperamide 2 mg tablet 2 mg PO Q4H PRN loose stool #10 08/25/19 tabs ondansetron HCl 4 mg tablet 4 mg PO Q6H PRN nausea and 08/25/19 (Zofran) vomiting #12 tabs hydrocortisone 2.5 % topical cream 1 applic MN BID-QID PRN 07/02/20 with perineal applicator hemorrhoids #30 grams (Anusol-HC) hydrocortisone acetate 25 mg 25 mg MN BID #24 ea 07/02/20 rectal suppository (Anusol-HC) ketorolac 10 mg tablet 10 mg PO TID PRN pain 5 days #14 10/21/21 tabs mupirocin 2 % topical ointment 1 applic topical DAILY PRN wound 10/21/21 #15 grams Allergies Allergy/AdvReac Type Severity Reaction Status Date / Time No Known Drug Allergies Allergy Verified 05/04/19 12:34 Review of Systems <MARK England - Last Filed: 10/21/21 12:37> Review of Systems Narrative: Review of systems is negative for acute abnormalities unless otherwise noted in HPI Patient History <MARK England - Last Filed: 10/21/21 12:37> Medical History No significant past medical history Surgical History No pertinent past surgical history Social History Smoking Status: Former smoker Smoking Status: Former smoker alcohol intake frequency: 0-2 drinks per day Substance Use Type: marijuana Exam <MARK England - Last Filed: 10/21/21 12:37> Narrative Exam Narrative: Reviewed vitals signs and nursing notes. General: cooperative, uncomfortable tearful, in distress well groomed, anxious MSK: moves all extremities, neurovascularly intact, no weakness, normal tone, right thumb with subungual hematoma, this was vented with a 23 gauge needle, patient tolerated well with anxiety and crying. Full range of motion intact of her right thumb, no tenderness over her snuffbox, full range of motion intact of her right wrist. Skin: brisk capillary refill, without pallor or erythema Neuro: normal speech and cognition, A&O x3, ambulatory, clear speech Psych: mental status is grossly normal, congruent mood, normal affect, pleasant and cooperative Initial Vital Signs Initial Vital Signs: Vital Signs Temperature 98.4 F 10/21/21 11:28 Pulse Rate 91 H 10/21/21 11:28 Respiratory Rate 16 10/21/21 11:28 Blood Pressure 144/82 H 10/21/21 11:28 Pulse Oximetry 99 10/21/21 11:28 Oxygen Delivery Method 10/21/21 11:28 <Marii Palacios DO - Last Filed: 10/22/21 10:14> Initial Vital Signs Initial Vital Signs: Vital Signs Temperature 98.4 F 10/21/21 11:28 Pulse Rate 91 H 10/21/21 11:28 Respiratory Rate 16 10/21/21 11:28 Blood Pressure 144/82 H 10/21/21 11:28 Pulse Oximetry 99 10/21/21 11:28 Oxygen Delivery Method 10/21/21 11:28 Procedures <MARK England - Last Filed: 10/21/21 12:37> Nail Trephination Location (finger): thumb Sterile prep: chlorhexidine Method of drainage: needle Procedure successful: Yes Patient tolerated procedure: well Complications: pain Course <MARK England - Last Filed: 10/21/21 12:37> Orders Ordered: Discontinued Medications Ketorolac Tromethamine (Ketorolac 10 Mg Tablet) 10 mg PO NOW ONE Stop: 10/21/21 12:18 Last Admin: 10/21/21 12:30 Dose: 10 mg Documented By: CTS Vital Signs Vital signs: Vital Signs - 8 hr 10/21/21 11:28 Temperature 98.4 F Pulse Rate 91 H Respiratory Rate 16 Blood Pressure 144/82 H Pulse Oximetry 99 Oxygen Delivery Method Room Air <Marii Palacios DO - Last Filed: 10/22/21 10:14> Orders Ordered: Discontinued Medications Ketorolac Tromethamine (Ketorolac 10 Mg Tablet) 10 mg PO NOW ONE Stop: 10/21/21 12:18 Last Admin: 10/21/21 12:30 Dose: 10 mg Documented By: CTS Vital Signs Vital signs: Vital Signs - 8 hr 10/21/21 11:28 Temperature 98.4 F Pulse Rate 91 H Respiratory Rate 16 Blood Pressure 144/82 H Pulse Oximetry 99 Oxygen Delivery Method Room Air MDM - Extremity Injury (Upper) <MARK England - Last Filed: 10/21/21 12:37> MDM Narrative Medical decision making narrative: 26-year-old female with right thumb subungual hematoma after shutting her thumb in the car door just prior to arrival. X-ray was negative for acute abnormality. Nail trephination completed with a 23 gauge needle, patient tolerated well with anxiety and crying. She was given Toradol for pain and given a prescription of mupirocin ointment and Toradol p.o. for pain. She is not . Patient is appropriate and amenable to discharge home. Vital signs are stable on repeat examination is unremarkable. Patient has been informed of results. Patient has been given strict return to ER precautions for any new or worsening symptoms. Patient understands to follow up closely with outpatient providers as instructed. Patient understands plan and agrees to discharge home. All questions and concerns answered at this time. Discharge Plan Departure Patient Disposition: Home Clinical Impression: Hematoma, subungual, finger Qualifiers: Encounter type: initial encounter Qualified Code(s): S60.10XA - Contusion of unspecified finger with damage to nail, initial encounter Crush injury to thumb Qualifiers: Encounter type: initial encounter Laterality: right Qualified Code(s): S67.01XA - Crushing injury of right thumb, initial encounter Instructions: DI for Subungual Hematoma, Ulnar Collateral Ligament Sprain of Thumb Activity Restrictions/Additional Instructions: *You have been diagnosed with a subungual hematoma and a crush injury of your thumb. I am sorry that this was painful, we vented the blood underneath the nail so it should start to heal but it may still throb and hurt for a few days. Please take Toradol every 8 hours with food and water as needed for pain, do not take any other anti-inflammatories like ibuprofen with it. You can take Tylenol in addition to this if it is not enough. Please follow-up at [facility] if you have ongoing some pain beyond 1 week or have difficulty moving it. You can call and schedule an appointment. I hope you feel better soon. *What to do: *Please continue to take your regular medications as directed. [x ] New medication prescriptions sent to your pharmacy: [[facility]] [ ] New medication written as a paper prescription [ ] No new medications given *Please follow up with your primary care provider in 2-3 days, call for an appointment. Let them know you were seen in the Emergency Department and that we asked that you be seen for follow-up. We will electronically transmit a record of today's note if your PCP is in our system *If you do not have a primary care provider please contact [phone] to establish care with one of the [facility] primary care providers. *Return to Emergency Department if you should have any new, worsening, or concerning symptoms, such as [fever greater than 101F, chills, worsening pain, persistent vomiting or other bothersome symptoms]. Prescriptions: New ketorolac 10 mg tablet 10 mg PO TID PRN (Reason: pain) 5 Days Qty: 14 0RF mupirocin 2 % ointment 1 applic topical DAILY PRN (Reason: wound) Qty: 15 0RF No Action ondansetron HCl [Zofran] 4 mg tablet 4 mg PO Q6H PRN (Reason: nausea and vomiting) Qty: 12 0RF doxycycline hyclate 100 mg tablet 100 mg PO BID Qty: 14 0RF loperamide 2 mg tablet 2 mg PO Q4H PRN (Reason: loose stool) Qty: 10 0RF Rx Instructions: administer after each loose stool until symptoms controlled; do not exceed 8 mg per 24 hrs albuterol sulfate 90 mcg/actuation HFA aerosol inhaler 2 puff INHALATION Q4-6H PRN (Reason: shortness of breath or wheezing) Qty: 8.5 0RF ondansetron 4 mg tablet,disintegrating 4 mg PO BID-TID PRN (Reason: nausea and vomiting) Qty: 10 0RF hydrocortisone acetate [Anusol-HC] 25 mg suppository 25 mg MN BID Qty: 24 0RF hydrocortisone [Anusol-HC] 2.5 % cream with perineal applicator 1 applic MN BID-QID PRN (Reason: hemorrhoids) Qty: 30 0RF Referrals: [facility] [Provider Group] Visit Report Forms: Patient Portal/API <Marii Palacios DO - Last Filed: 10/22/21 10:14> Cosign ED Attending Kelli Attestation: I was immediately available in the department for consultation. Documentation has been reviewed. I agree with assessment and plan.
--- NOTE | 2021-10-21 12:39 | PC.NURSE ---
crush injury--jammed R side thumb and 2nd digit in car door. appears bruised. no deformity. 2+ pulse
== END 2021-10-21 12:40 | disposition home or self-care (01) ==
PROVIDERS: Emergency Provider Nurse Practitioner Critical Care Medicine
DX: S60.10XA Contusion of unspecified finger with damage to nail, initial encounter (principal); S67.01XA Crushing injury of right thumb, initial encounter; W23.0XXA Caught, crushed, jammed, or pinched between moving objects, initial encounter
CPT/HCPCS: 73130; 99283